=== PATIENT | female | born 1955 | race Caucasian/White ===

== ENCOUNTER 2020-12-22 06:22 | Day surgery (SDC) | payer OTHER, SELFPAY ==
[2020-12-16 09:55] VITALS: BMI 36.0
[2020-12-16 10:48] VITALS: BMI 34.4
--- NOTE | 2020-12-16 12:33 | P.CONAN_ITS ---
Documented by User: Paty Jacobson 12/16/20 12:38 HPI - Anesthesia Eval Consult details Narrative: 65yo F for Colonoscopy PMFSH Past Medical History Medical History Arrhythmia Arthritis Back pain Diabetes Elevated cholesterol GERD (gastroesophageal reflux disease) Hepatic steatosis HTN (hypertension) Hx of aortic valve stenosis Hx of mitral valve prolapse Surgical History Surgical History H/O colonoscopy History of bladder suspension procedure History of esophagogastroduodenoscopy (EGD) Hx of cholecystectomy Hx of foot surgery Hx of repair of rotator cuff Social History Social History Are you a primary field care advocate to a significant other at home: No Do you presently have visiting nurse or other home services: No Smoking Status: Never smoker Use of substances other than those prescribed or required for medical reasons: No Have you been hit, kicked, punched, or otherwise hurt by someone within the past year? If so, by whom?: No Advance Directives Information Provided: No Recently lost weight without trying: No Meds Allergies Allergy/AdvReac Type Severity Reaction Status Date / Time atenolol Allergy Severe low HR Verified 12/16/20 11:06 caffeine Allergy Severe V-Tach Verified 12/16/20 11:06 Penicillins Allergy Intermediate Rash Verified 12/16/20 11:06 clindamycin AdvReac Intermediate Nausea and Verified 12/16/20 11:06 Vomiting lisinopril AdvReac Intermediate Cough Verified 12/16/20 11:06 tetracycline AdvReac Intermediate Nausea and Verified 12/16/20 11:06 Vomiting Home Medications Medication Instructions Recorded Confirmed Type ascorbic acid (vitamin C) [Vitamin 500 mg PO DAILY 12/16/20 12/16/20 History C] aspirin [Aspirin Low-Strength] 81 mg PO DAILY 12/16/20 12/16/20 History cholecalciferol (vitamin D3) 100 mcg PO DAILY 12/16/20 12/16/20 History [Vitamin D3] diltiazem HCl 240 mg PO BEDTIME 12/16/20 12/16/20 History hydrochlorothiazide 12.5 mg PO DAILY 12/16/20 12/16/20 History losartan 100 mg PO QAM 12/16/20 12/16/20 History omeprazole 40 mg PO DAILY 12/16/20 12/22/20 History potassium chloride [Klor-Con M20] 20 meq PO DAILY 12/16/20 12/16/20 History valacyclovir 1 tab PO DAILY 12/16/20 12/16/20 History Exam Exam Date and Time: December 16, 2020 1233 Height,Weight and Vital Signs: Height 5 ft 10 in Weight 108.862 kg Narrative Narrative: EKG 10/2020 NSR per cardiology note ECHO 2017 Nml LV sys function Nml wall motion LVEF is >70% Mild DD Aortic valve is bicuspid with mild , mild to mod AR Compared to previous, trans-aortic peak gradient has increased slightly. No other significant new findings. Assessment and Plan Assessment Anesthesia Assessment: Chart Reviewed Documented by User: Gillian Holloway 12/22/20 07:40 PMFSH Past Medical History Medical History Arrhythmia Arthritis Back pain Diabetes Elevated cholesterol GERD (gastroesophageal reflux disease) Hepatic steatosis HTN (hypertension) Hx of aortic valve stenosis Hx of mitral valve prolapse Family History Family history of problems with anesthesia: No Surgical History Surgical History H/O colonoscopy History of bladder suspension procedure History of esophagogastroduodenoscopy (EGD) Hx of cholecystectomy Hx of foot surgery Hx of repair of rotator cuff History of Problems with Anesthesia: No Social History Social History Are you a primary field care advocate to a significant other at home: No Do you presently have visiting nurse or other home services: No Smoking Status: Never smoker Use of substances other than those prescribed or required for medical reasons: No Have you been hit, kicked, punched, or otherwise hurt by someone within the past year? If so, by whom?: No Advance Directives Information Provided: No Recently lost weight without trying: No Meds Allergies Allergy/AdvReac Type Severity Reaction Status Date / Time atenolol Allergy Severe low HR Verified 12/16/20 11:06 caffeine Allergy Severe V-Tach Verified 12/16/20 11:06 Penicillins Allergy Intermediate Rash Verified 12/16/20 11:06 clindamycin AdvReac Intermediate Nausea and Verified 12/16/20 11:06 Vomiting lisinopril AdvReac Intermediate Cough Verified 12/16/20 11:06 tetracycline AdvReac Intermediate Nausea and Verified 12/16/20 11:06 Vomiting Home Medications Medication Instructions Recorded Confirmed Type ascorbic acid (vitamin C) [Vitamin 500 mg PO DAILY 12/16/20 12/16/20 History C] aspirin [Aspirin Low-Strength] 81 mg PO DAILY 12/16/20 12/16/20 History cholecalciferol (vitamin D3) 100 mcg PO DAILY 12/16/20 12/16/20 History [Vitamin D3] diltiazem HCl 240 mg PO BEDTIME 12/16/20 12/16/20 History hydrochlorothiazide 12.5 mg PO DAILY 12/16/20 12/16/20 History losartan 100 mg PO QAM 12/16/20 12/16/20 History omeprazole 40 mg PO DAILY 12/16/20 12/22/20 History potassium chloride [Klor-Con M20] 20 meq PO DAILY 12/16/20 12/16/20 History valacyclovir 1 tab PO DAILY 12/16/20 12/16/20 History Exam Height,Weight and Vital Signs: Vital Signs Temp Pulse Resp BP Pulse Ox 12/22/20 06:28 99 F 79 16 175/72 H 99 Airway Mallampati Class: II TM Dist: >3cm Neck ROM: Full Loose/Missing/Broken Teeth: No Heart: RRR Lungs: CTAB Assessment and Plan Assessment Anesthesia Assessment: Anesthesia Plan Discussed and Chart Reviewed Final Anesthetic Review NPO: Yes ASA Class: III Final Preanesthetic Review: No Changes in Pt Med Stat, Meds/Allgs Chart Reviewed, Consent Obtained/Reviewed and Anes Risks/Benef Reviewed Patient Risk: Intermediate Procedure Risk: Low Assessment/Block/Sedation in SS: Assess/Block/Sedation-SS Anesthetic Plan Anesthetic Plan: MAC: Disposition: Standard PACU
[2020-12-22 06:28] VITALS: BP 175/72; PULSE 79; RESP 16; TEMP 37.2; O2SAT 99
[2020-12-22] MEDS: Lactated Ringers 1,000 ML 100 ML IVCONT (06:51)
--- NOTE | 2020-12-22 07:30 | MHC.SHP ---
Pre-Procedural Eval Section B Chief Complaint: Screening Details of Present Illness: screening, FH colon ca Relevant Family History (Specify if Yes): Yes Relevant Social History: None Present Medications: see Short Stay Collaborative assessment Medical History: Significant History (see H&P) History of Previous Operations: No relevant previous surgery Allergies: Allergies Allergy/AdvReac Type Severity Reaction Status Date / Time atenolol Allergy Severe low HR Verified 12/16/20 11:06 caffeine Allergy Severe V-Tach Verified 12/16/20 11:06 Penicillins Allergy Intermediate Rash Verified 12/16/20 11:06 clindamycin AdvReac Intermediate Nausea and Verified 12/16/20 11:06 Vomiting lisinopril AdvReac Intermediate Cough Verified 12/16/20 11:06 tetracycline AdvReac Intermediate Nausea and Verified 12/16/20 11:06 Vomiting Review of Systems Sugical H&P ROS: Negative: Constitution, Cardiovascular, Respiratory, Neurological, Psychiatric, Hem-Onc, Allergic/Immunologic, Gastrointestinal, Genitourinary, Musculoskeletal, Integumentary, Endocrine and Eyes/Ears/Nose/Throat Exam Surgical H&P Exam: Normal: HEENT, Normal: Heart, Normal: Lungs, Normal: Extremities, Normal: Abdomen, Normal: Skin and Normal: Neurological Plan Diagnosis/Plan: Unchanged I have reviewed the history and physical and performed a pertinent physical examination on my patient. No changes have occurred unless specified.
[2020-12-22 07:58] VITALS: BP 105/70; PULSE 58; RESP 12; TEMP 36.1; O2SAT 99
--- NOTE | 2020-12-22 08:06 | PM.OP ---
Brief Operative Note Date of Service: 12/22/20 Pre-op diagnosis: fh colon cancer Post-op diagnosis: same (colon polyps) Procedure: colonoscopy Surgeon: Bob Ibanez Anesthesia: MAC Estimated blood loss (mL): 2 Pathology: other (polyps cecum and 20 cm) Condition: stable Disposition: PACU
[2020-12-22 08:13] VITALS: BP 125/58; PULSE 59; RESP 16; O2SAT 100
--- NOTE | 2020-12-22 08:23 | OP_ITS ---
SURGEON: Bob Ibanez MD INDICATIONS: Family history of colon cancer. PREOPERATIVE DIAGNOSIS: POSTOPERATIVE DIAGNOSIS: PROCEDURE PERFORMED: ESTIMATED BLOOD LOSS: COMPLICATIONS: ANESTHESIA: Medications, monitored anesthesia care. ASSISTANTS: SPECIMENS: PROCEDURES PERFORMED: Colonoscopy to the terminal ileum with biopsy and snare polypectomy. DESCRIPTION OF PROCEDURE: History and physical was performed. The risks and benefits of the procedure were explained to the patient. Informed consent was obtained. The patient was placed in left lateral decubitus position. A digital rectal exam was performed and was found to be normal. The Olympus pediatric video colonoscope was introduced into the rectum and advanced to the cecum without difficulty. The cecum was identified by transillumination, palpation, and identification of ileocecal valve. Examination was performed. The scope was removed. She tolerated the procedure well and was taken to the Recovery Room in stable condition. FINDINGS: The terminal ileum was examined and appeared normal. The visualized colonic mucosa was normal. The quality of prep was good. Two polyps were identified. The first in the cecum measured less than 5 mm. The first was removed with a biopsy forceps. The second polyp at 20 cm showed an 8 mm flat polyp, which was removed with a snare and recovered via suction. No other polyps were identified. The quality of the prep was good. Retroflexed examination was normal. IMPRESSION: Colon polyps. RECOMMENDATION: Follow up the biopsy results. MD ROBERTO May/ELSIE / [id number]
--- NOTE | 2020-12-22 08:34 | HO.POSTANES ---
Post Anesthesia Evaluation Post Anesthesia Evaluation Vital Signs: Vital Signs Temp Pulse Resp BP Pulse Ox 12/22/20 08:13 59 16 125/58 L 100 12/22/20 07:58 97.0 F 58 12 105/70 99 12/22/20 06:28 99 F 79 16 175/72 H 99 Anesthesia: Monitored Mental Status: Awake Pain Control: Satisfactory Nausea/Vomiting: None Hydration: Adequate Anesthesia-Related Issues: No Anes. Related Issues
== END 2020-12-22 08:50 | disposition home or self-care (01) ==
PROVIDERS: PCP Family Medicine; Visit Provider Internal Medicine Gastroenterology
PROC: 0DJD8ZZ Inspection of Lower Intestinal Tract, Via Natural or Artificial Opening Endoscopic (ICD-10-PCS; CPT 45378; principal; 2020-12-22 07:30)
DX: Z12.11 Encounter for screening for malignant neoplasm of colon (principal); D12.0 Benign neoplasm of cecum; D12.6 Benign neoplasm of colon, unspecified; I10 Essential (primary) hypertension; Z79.82 Long term (current) use of aspirin; Z80.0 Family history of malignant neoplasm of digestive organs; Z88.0 Allergy status to penicillin; Z88.8 Allergy status to other drugs, medicaments and biological substances
CPT/HCPCS: 45385; 45380; 88305; J2765

== ENCOUNTER 2024-07-12 07:58 | Day surgery (SDC) | payer MEDICARE, SELFPAY ==
[2024-07-10 13:07] VITALS: BMI 35.9
--- NOTE | 2024-07-11 12:24 | P.CONAN_ITS ---
Documented by User: Paty Jacobson NP 07/11/24 12:27 HPI - Anesthesia Eval Consult details Narrative: 68yo F for Colonoscopy Follows outside cardiology for Vtach s/p ablation, palps, bicuspid AV with mild AI, mild MR, htn. Stable at 02/2024 office visit [facility] Past Medical History Medical History Heart murmur Paroxysmal ventricular tachycardia Dyslipidemia Back pain Hepatic steatosis GERD (gastroesophageal reflux disease) Elevated cholesterol Arthritis Diabetes Arrhythmia HTN (hypertension) Hx of aortic valve stenosis Hx of mitral valve prolapse Family History Family history of problems with anesthesia: No Surgical History Surgical History History of cardiac radiofrequency ablation Hx of total knee arthroplasty Hx of foot surgery Hx of repair of rotator cuff History of bladder suspension procedure Hx of cholecystectomy History of esophagogastroduodenoscopy (EGD) H/O colonoscopy History of Problems with Anesthesia: No Social History Social History Are you a primary critical care transport nurse to a significant other at home: No Do you presently have visiting nurse or other home services: No Patient Tobacco Use Status: Never used Tobacco Use of substances other than those prescribed or required for medical reasons: No Have you been hit, kicked, punched, or otherwise hurt by someone within the past year? If so, by whom?: No Are you DNR?: No Advance Directives: No Advance Directives Information Provided: Yes Recently lost weight without trying: No Nutrition Risks: No Nutritional Risk Meds Allergies Allergy/AdvReac Type Severity Reaction Status Date / Time atenolol Allergy Severe low HR Verified 07/12/24 08:27 caffeine Allergy Severe V-Tach Verified 07/12/24 08:27 Penicillins Allergy Intermediate Rash Verified 07/12/24 08:27 clindamycin AdvReac Intermediate Nausea and Verified 07/12/24 08:27 Vomiting lisinopril AdvReac Intermediate Cough Verified 07/12/24 08:27 tetracycline AdvReac Intermediate Nausea and Verified 07/12/24 08:27 Vomiting Home Medications ?Medication ?Instructions ?Recorded ?Confirmed ?Last Taken ?Type ascorbic acid (vitamin C) 500 mg 500 mg PO DAILY 12/16/20 07/10/24 Unknown History tablet (Vitamin C) aspirin 81 mg tablet,delayed 81 mg PO DAILY 12/16/20 07/12/24 07/05/24 History release cholecalciferol (vitamin D3) 50 100 mcg PO DAILY 12/16/20 07/12/24 07/11/24 History mcg (2,000 unit) capsule (Vitamin D3) diltiazem HCl 240 mg 240 mg PO BEDTIME 12/16/20 07/12/24 07/12/24 History capsule,extended release 24 hr hydrochlorothiazide 12.5 mg tablet 12.5 mg PO DAILY 12/16/20 07/10/24 Unknown History losartan 100 mg tablet 100 mg PO QAM 12/16/20 07/12/24 07/11/24 History omeprazole 40 mg capsule,delayed 40 mg PO DAILY 12/16/20 07/12/24 07/12/24 History release potassium chloride 20 mEq 20 meq PO DAILY 12/16/20 07/12/24 07/11/24 History tablet,extended release(part/cryst) (Klor-Con M) valacyclovir 500 mg tablet 1 tab PO DAILY 12/16/20 07/12/24 07/11/24 History atorvastatin 40 mg tablet 40 mg PO DAILY 07/10/24 07/12/24 07/11/24 History metformin 500 mg tablet,extended 500 mg PO BID 07/10/24 07/12/24 07/11/24 History release 24 hr celecoxib 200 mg capsule 200 mg PO BID PRN Pain 07/12/24 07/12/24 07/05/24 History Exam Height,Weight and Vital Signs: Height 5 ft 10 in Weight 113.398 kg Assessment and Plan Assessment Anesthesia Assessment: Chart Reviewed Final Anesthetic Review Family History of Problems with Anesthesia: No History of Problems with Anesthesia: No Documented by User: Edith Mckeon MD 07/12/24 09:09 [facility] Past Medical History Medical History Heart murmur Paroxysmal ventricular tachycardia Dyslipidemia Back pain Hepatic steatosis GERD (gastroesophageal reflux disease) Elevated cholesterol Arthritis Diabetes Arrhythmia HTN (hypertension) Hx of aortic valve stenosis Hx of mitral valve prolapse Surgical History Surgical History History of cardiac radiofrequency ablation Hx of total knee arthroplasty Hx of foot surgery Hx of repair of rotator cuff History of bladder suspension procedure Hx of cholecystectomy History of esophagogastroduodenoscopy (EGD) H/O colonoscopy Social History Social History Are you a primary critical care transport nurse to a significant other at home: No Do you presently have visiting nurse or other home services: No Patient Tobacco Use Status: Never used Tobacco Use of substances other than those prescribed or required for medical reasons: No Have you been hit, kicked, punched, or otherwise hurt by someone within the past year? If so, by whom?: No Are you DNR?: No Advance Directives: No Advance Directives Information Provided: Yes Recently lost weight without trying: No Nutrition Risks: No Nutritional Risk Meds Allergies Allergy/AdvReac Type Severity Reaction Status Date / Time atenolol Allergy Severe low HR Verified 07/12/24 08:27 caffeine Allergy Severe V-Tach Verified 07/12/24 08:27 Penicillins Allergy Intermediate Rash Verified 07/12/24 08:27 clindamycin AdvReac Intermediate Nausea and Verified 07/12/24 08:27 Vomiting lisinopril AdvReac Intermediate Cough Verified 07/12/24 08:27 tetracycline AdvReac Intermediate Nausea and Verified 07/12/24 08:27 Vomiting Home Medications ?Medication ?Instructions ?Recorded ?Confirmed ?Last Taken ?Type ascorbic acid (vitamin C) 500 mg 500 mg PO DAILY 12/16/20 07/10/24 Unknown History tablet (Vitamin C) aspirin 81 mg tablet,delayed 81 mg PO DAILY 12/16/20 07/12/24 07/05/24 History release cholecalciferol (vitamin D3) 50 100 mcg PO DAILY 12/16/20 07/12/24 07/11/24 History mcg (2,000 unit) capsule (Vitamin D3) diltiazem HCl 240 mg 240 mg PO BEDTIME 12/16/20 07/12/24 07/12/24 History capsule,extended release 24 hr hydrochlorothiazide 12.5 mg tablet 12.5 mg PO DAILY 12/16/20 07/10/24 Unknown History losartan 100 mg tablet 100 mg PO QAM 12/16/20 07/12/24 07/11/24 History omeprazole 40 mg capsule,delayed 40 mg PO DAILY 12/16/20 07/12/24 07/12/24 History release potassium chloride 20 mEq 20 meq PO DAILY 12/16/20 07/12/24 07/11/24 History tablet,extended release(part/cryst) (Klor-Con M) valacyclovir 500 mg tablet 1 tab PO DAILY 12/16/20 07/12/24 07/11/24 History atorvastatin 40 mg tablet 40 mg PO DAILY 07/10/24 07/12/24 07/11/24 History metformin 500 mg tablet,extended 500 mg PO BID 07/10/24 07/12/24 07/11/24 History release 24 hr celecoxib 200 mg capsule 200 mg PO BID PRN Pain 07/12/24 07/12/24 07/05/24 History Exam Airway Mallampati Class: II TM Dist: >3cm Neck ROM: Full Heart: rrr Lungs: cta Assessment and Plan Assessment Anesthesia Assessment: Anesthesia Plan Discussed Final Anesthetic Review NPO: Yes ASA Class: III Final Preanesthetic Review: No Changes in Pt Med Stat, Meds/Allgs Chart Reviewed, Consent Obtained/Reviewed and Anes Risks/Benef Reviewed Patient Risk: Intermediate Procedure Risk: Low Anesthetic Plan Anesthetic Plan: MAC: Disposition: Standard PACU
[2024-07-12 08:05] VITALS: BMI 35.3
[2024-07-12 08:22] VITALS: BP 170/71; PULSE 79; RESP 16; TEMP 36.5; O2SAT 100
[2024-07-12] MEDS: Lactated Ringers 1,000 ML 100 ML IVCONT (08:23)
[2024-07-12 08:34] LABS: Glucose, Whole Blood 108 mg/dL (60-115)
--- NOTE | 2024-07-12 08:55 | MHC.SHP ---
Pre-Procedural Eval Section A - 24 Hr Update-Section A only Date of Service: 07/12/24 Section B - Complete if H&P > 30 days Chief Complaint: screening Details of Present Illness: see H&P no changes Relevant Family History (Specify if Yes): No Relevant Social History: None Present Medications: see Short Stay Collaborative assessment Medical History: No relevant PMH History of Previous Operations: No relevant previous surgery Allergies: Allergies Allergy/AdvReac Type Severity Reaction Status Date / Time atenolol Allergy Severe low HR Verified 07/12/24 08:27 caffeine Allergy Severe V-Tach Verified 07/12/24 08:27 Penicillins Allergy Intermediate Rash Verified 07/12/24 08:27 clindamycin AdvReac Intermediate Nausea and Verified 07/12/24 08:27 Vomiting lisinopril AdvReac Intermediate Cough Verified 07/12/24 08:27 tetracycline AdvReac Intermediate Nausea and Verified 07/12/24 08:27 Vomiting Review of Systems Sugical H&P ROS: Negative: Constitution, Cardiovascular, Respiratory, Neurological, Psychiatric, Hem-Onc, Allergic/Immunologic, Gastrointestinal, Genitourinary, Musculoskeletal, Integumentary, Endocrine and Eyes/Ears/Nose/Throat Exam Surgical H&P Exam: Normal: HEENT, Normal: Heart, Normal: Lungs, Normal: Extremities, Normal: Abdomen, Normal: Skin and Normal: Neurological Plan Diagnosis/Plan: Unchanged I have reviewed the history and physical and performed a pertinent physical examination on my patient. No changes have occurred unless specified. Time Spent With Patient Time: Total time managing care of this patient today ____ minutes.
[2024-07-12 09:21] VITALS: BP 106/49; PULSE 62; RESP 18; TEMP 36.6; O2SAT 98
[2024-07-12 09:36] VITALS: BP 124/62; PULSE 66; RESP 18; TEMP 36.6; O2SAT 98
--- NOTE | 2024-07-12 09:52 | OP_ITS ---
DATE OF SERVICE: 07/12/2024 SURGEON: Bob Ibanez MD INDICATIONS: Colon cancer screening. PREOPERATIVE DIAGNOSIS: POSTOPERATIVE DIAGNOSIS: PROCEDURE PERFORMED: Colonoscopy to the terminal ileum with biopsy. ESTIMATED BLOOD LOSS: COMPLICATIONS: ANESTHESIA: Medications, monitored anesthesia care. ASSISTANTS: SPECIMENS: DESCRIPTION OF PROCEDURE: A history and physical performed. The risks and benefits of the procedure were explained to the patient. Informed consent was obtained. The patient was placed in the left lateral decubitus position. A digital rectal exam was performed and was found to be normal. The Olympus pediatric video colonoscope was introduced into the rectum and advanced to the cecum. The cecum was identified by transillumination, palpation, and identification of ileocecal valve. Examination was performed. The scope was removed. She tolerated the procedure well and was taken to recovery in stable condition. FINDINGS: The terminal ileum was examined and appeared normal. The visualized colonic mucosa was normal. The quality of the prep was good. A polyp was identified at 90 cm in the right colon measuring less than 5 mm. This was removed with biopsy forceps. No other polyps were identified. Retroflexed examination showed some small internal hemorrhoids. IMPRESSION: Colon polyp. RECOMMENDATION: Follow up the biopsy results. MD ROBERTO May/ELSIE / [id number]
== END 2024-07-12 10:10 | disposition home or self-care (01) ==
PROVIDERS: PCP Family Medicine; Visit Provider Internal Medicine Gastroenterology
PROC: 0DJD8ZZ Inspection of Lower Intestinal Tract, Via Natural or Artificial Opening Endoscopic (ICD-10-PCS; CPT 45378; principal; 2024-07-12 09:10)
DX: Z12.11 Encounter for screening for malignant neoplasm of colon (principal); Z86.010 Personal history of colon polyps; Z80.0 Family history of malignant neoplasm of digestive organs; D12.3 Benign neoplasm of transverse colon; K64.8 Other hemorrhoids; K76.0 Fatty (change of) liver, not elsewhere classified; K21.9 Gastro-esophageal reflux disease without esophagitis; E11.9 Type 2 diabetes mellitus without complications; E78.5 Hyperlipidemia, unspecified; Z79.899 Other long term (current) drug therapy; Z79.82 Long term (current) use of aspirin; Z79.84 Long term (current) use of oral hypoglycemic drugs; Z88.0 Allergy status to penicillin; Z88.1 Allergy status to other antibiotic agents; Z88.8 Allergy status to other drugs, medicaments and biological substances; Z98.890 Other specified postprocedural states
CPT/HCPCS: 45380; 82947; 88305; J2704